=== PATIENT | female | born 1945 | race Caucasian/White ===

== ENCOUNTER 2018-12-10 14:01 | Emergency (ER) | payer MEDICARE, MEDICAID ==
[~2018-12-10] VITALS: Ht 160 cm; Wt 57.0 kg
[~2018-12-10 14:01] MED LIST: ALBU8HFA PO; ATRIN IH; LISI-230 PO
[2018-12-10 14:16] VITALS: BP 125/61
== END 2018-12-10 18:54 | disposition left against medical advice (07) ==
LOC: ER 14:02
DX: R42 Dizziness and giddiness (principal); Z53.21 Procedure and treatment not carried out due to patient leaving prior to being seen by health care provider
CPT/HCPCS: 93005